=== PATIENT | male | born 2000 | race African-American/Black ===

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

== ENCOUNTER 2020-03-22 19:20 | Emergency (ER) | payer MEDICAID, OTHER ==
[~2020-03-22] VITALS: Ht 175.3 cm; Wt 136.0 kg
[2020-03-22 20:37] VITALS: BP 131/74
== END 2020-03-22 20:38 | disposition home or self-care (01) ==
LOC: ER 19:20
DX: S39.848A Other specified injuries of external genitals, initial encounter (principal); R05 Cough; I10 Essential (primary) hypertension; Y08.89XA Assault by other specified means, initial encounter; Y93.89 Activity, other specified; Y92.89 Other specified places as the place of occurrence of the external cause
CPT/HCPCS: 99281; 99283

== ENCOUNTER 2020-07-01 17:17 | Emergency (ER) | payer OTHER ==
[~2020-07-01] VITALS: Ht 175.3 cm; Wt 90.0 kg
[2020-07-01] MEDS ORDERED: IBUPROFEN 600MG TABLET PO ONE (18:15)
[2020-07-01 18:52] LABS: HEMATOCRIT. 42.1 % (42.0-52.0); HEMOGLOBIN. 14.3 g/dL (14.0-18.0); MEAN CORPUSCULAR HEMOGLOBIN 30.2 pg (28.0-32.0); MEAN CORPUSCULAR VOLUME 88.9 fL (80.0-94.0); MEAN PLATELET VOLUME 9.6 fl (7.4-10.4); PLATELET 147 x1000/uL (130-400); RED BLOOD CELL COUNT 4.74 mill/uL (4.7-6.1); RED CELL DISTRIBUTION WIDTH 13.9 % (11.6-14.6)
[2020-07-01 18:59] LABS: CHLORIDE 101 mEq/L (98-107)
[2020-07-01 19:18] LABS: PLATELET ESTIMATE NORMAL
[2020-07-01 19:54] VITALS: BP 132/84
== END 2020-07-01 22:33 | disposition home or self-care (01) ==
LOC: ER 17:17
DX: U07.1 COVID-19 (principal); R06.02 Shortness of breath; R07.89 Other chest pain
CPT/HCPCS: 36415; 71045; 80053; 83605; 85025; 87635; 93005; 99285

== ENCOUNTER 2020-08-09 17:55 | Emergency (ER) | payer MEDICAID, OTHER ==
[~2020-08-09] VITALS: Ht 193 cm; Wt 137.0 kg
[2020-08-09 20:26] LABS: BASOPHILS % 0.8 % (0.0-2.0); EOSINOPHILS % 1.5 % (0.0-5.0); HEMATOCRIT. 37.8 % (42.0-52.0); HEMOGLOBIN. 13.2 g/dL (14.0-18.0); LYMPHOCYTES % 39.9 % (20.0-50.0); MEAN CORPUSCULAR HEMOGLOBIN 31.5 pg (28.0-32.0); MEAN CORPUSCULAR VOLUME 89.9 fL (80.0-94.0); MEAN PLATELET VOLUME 9.3 fl (7.4-10.4); NEUTROPHILS % 50.8 % (40.0-76.0); PLATELET 192 x1000/uL (130-400); RED CELL DISTRIBUTION WIDTH 14.7 % (11.6-14.6)
[2020-08-09 20:33] LABS: CHLORIDE 104 mEq/L (98-107)
[2020-08-09 20:37] LABS: ETHANOL BLOOD < 10 mg/dL
[2020-08-10 12:46] VITALS: BP 125/75
== END 2020-08-10 12:49 | disposition home or self-care (01) ==
LOC: ER 17:55
DX: F91.8 Other conduct disorders (principal); R45.1 Restlessness and agitation; I10 Essential (primary) hypertension; F79 Unspecified intellectual disabilities
CPT/HCPCS: 36415; 80053; 80320; 85025; 99285; G0480

== ENCOUNTER 2020-09-25 17:14 | Emergency (ER) | payer MEDICAID, OTHER ==
[~2020-09-25] VITALS: Ht 167.6 cm; Wt 118.0 kg
[2020-09-25 17:47] VITALS: BP 128/74
[2020-09-25] MEDS ORDERED: DEXAMETHASONE 4MG TABLET PO ONE (18:00)
[2020-09-25] MEDS ORDERED: ALBU6.7H9 INH (18:17)
[2020-09-25] MEDS ORDERED: DEXA6TAB6 MT (18:18)
== END 2020-09-25 19:02 | disposition home or self-care (01) ==
LOC: ER 17:14
DX: R05 Cough (principal); R50.9 Fever, unspecified; R53.81 Other malaise; R06.2 Wheezing; I10 Essential (primary) hypertension; Z20.822 Contact with and (suspected) exposure to COVID-19
CPT/HCPCS: 71045; 93005; 99285; C9803; J8540; U0003; 99283

== ENCOUNTER 2021-01-24 17:23 | Emergency (ER) | payer MEDICAID, OTHER ==
[~2021-01-24] VITALS: Ht 172.7 cm; Wt 91.0 kg
[~2021-01-24 17:23] MED LIST: ALBU6.7H9 INH; DEXA6TAB6 MT
[2021-01-24 17:31] VITALS: BP 117/64
[2021-01-24 20:18] LABS: BASOPHILS % 0.9 % (0.0-2.0); EOSINOPHILS % 2.1 % (0.0-5.0); HEMOGLOBIN. 13.7 g/dL (14.0-18.0); LYMPHOCYTES % 28.6 % (20.0-50.0); MEAN CORPUSCULAR HEMOGLOBIN 30.3 pg (28.0-32.0); MEAN CORPUSCULAR VOLUME 88.2 fL (80.0-94.0); MEAN PLATELET VOLUME 9.5 fl (7.4-10.4); MONOCYTES % 8.4 % (2.0-8.0); PLATELET 195 x1000/uL (130-400); RED BLOOD CELL COUNT 4.53 mill/uL (4.7-6.1); RED CELL DISTRIBUTION WIDTH 14.1 % (11.6-14.6)
[2021-01-24 20:29] LABS: CHLORIDE 103 mEq/L (98-107)
[2021-01-24 20:33] LABS: ETHANOL BLOOD < 10 mg/dL
[2021-01-24] MEDS ORDERED: MAGNESIUM/ALUMINUM HYDROXIDE/SIMETHICONE 30ML UDC PO STA (21:59)
== END 2021-01-24 23:15 | disposition home or self-care (01) ==
LOC: ER 17:23
DX: R07.89 Other chest pain (principal); I10 Essential (primary) hypertension; F32.9 Major depressive disorder, single episode, unspecified; F79 Unspecified intellectual disabilities
CPT/HCPCS: 36415; 71045; 80053; 80307; 80320; 80329; 85025; 93005; 99285; G0480